=== PATIENT | female | born 1970 | race Caucasian/White ===

== ENCOUNTER → 2023-11-17 15:59 | Outpatient (REF) | payer OTHER, SELFPAY | LOC: CLAB 15:59 | PROVIDERS: ATTENDING PHYSICIAN Obstetrics & Gynecology | DX: N39.0 Urinary tract infection, site not specified (principal); R39.89 Other symptoms and signs involving the genitourinary system; Z97.5 Presence of (intrauterine) contraceptive device | CPT/HCPCS: 88300 ==